=== PATIENT | female | born 1980 | race African-American/Black ===

== ENCOUNTER 2017-07-18 22:45 | Emergency (ER) | payer MEDICARE, OTHER ==
[~2017-07-18] VITALS: Ht 165.1 cm; Wt 73.0 kg
[2017-07-18] MEDS ORDERED: SODIUM CHLORIDE 0.9% 1,000 ML IV ONE (23:23)
[2017-07-18 23:47] LABS: BASOPHILS % 0.1 % (0.0-2.0); EOSINOPHILS % 0.3 % (0.0-5.0); HEMATOCRIT. 34.1 % (36.0-48.0); HEMOGLOBIN. 11.2 g/dL (12.0-16.0); LYMPHOCYTES % 14.1 % (20.0-50.0); MEAN CORPUSCULAR HEMOGLOBIN 27.7 pg (28.0-32.0); MEAN CORPUSCULAR VOLUME 84.7 fL (81.0-99.0); MEAN PLATELET VOLUME 9.4 fl (7.4-10.4); MONOCYTES % 5.2 % (2.0-8.0); NEUTROPHILS % 80.3 % (40.0-76.0); PLATELET 254 x1000/uL (130-400); RED BLOOD CELL COUNT 4.03 mill/uL (4.2-5.4); RED CELL DISTRIBUTION WIDTH 14.2 % (11.6-14.6)
[2017-07-18 23:50] LABS: CHLORIDE 108 mEq/L (98-107)
[2017-07-18 23:53] LABS: PROTHROMBIN TIME 10.8 sec (9.4-11.6)
[2017-07-19] LABS: CARBON DIOXIDE 23 mEq/L (21-32)
[2017-07-19 00:14] LABS: GLUCOSE URINE NEGATIVE (NEGATIVE); KETONES URINE 1+ (NEGATIVE); LEUKOCYTE ESTERASE URINE 2+ (NEGATIVE); NITRITE URINE POSITIVE (NEGATIVE); OCCULT BLOOD URINE 3+ (NEGATIVE); PROTEIN URINE 4+ (NEGATIVE); SPECIFIC GRAVITY URINE 1.029 (1.005-1.030)
[2017-07-19 00:15] LABS: CLARITY URINE CLOUDY (CLEAR); COLOR URINE BLOODY (YELLOW)
[2017-07-19] MEDS ORDERED: MORPHINE SULFATE 4 MG/ML CPJ (NOT FOR IM USE) IV SCH (00:15)
[2017-07-19] MEDS ORDERED: ONDANSETRON HCL 4MG/2ML VIAL IV SCH (00:15)
[2017-07-19 00:44] VITALS: BP 112/68
[2017-07-19] MEDS ORDERED: CEFTRIAXONE 1 G PREMIX 50 ML IV SCH (01:15)
== END 2017-07-19 06:18 | disposition home or self-care (01) ==
LOC: ER 22:45
DX: O20.0 Threatened abortion (principal); O23.40 Unspecified infection of urinary tract in pregnancy, unspecified trimester; O34.10 Maternal care for benign tumor of corpus uteri, unspecified trimester; O26.899 Other specified pregnancy related conditions, unspecified trimester; D72.829 Elevated white blood cell count, unspecified; Z98.890 Other specified postprocedural states; Z3A.00 Weeks of gestation of pregnancy not specified
CPT/HCPCS: 36415; 76856; 80053; 81001; 83690; 84702; 85025; 85610; 86850; 86900; 86901; 96361; 96365; 96375; 99285; J0696; J2270; J2405; J7030; Z7610; 81003